=== PATIENT | female | born 1945 | race Caucasian/White ===

== ENCOUNTER 2021-05-15 14:35 | Emergency (ER) | payer MEDICARE, SELFPAY ==
[2021-05-15 14:48] VITALS: BP 135/68; PULSE 75; RESP 20; TEMP 37; O2SAT 99
--- NOTE | 2021-05-15 15:24 | ED.EYEPROB ---
HPI - Eye Problem General Chief complaint: Eye Problems Stated complaint: Possible injury to left Eye Source: patient and RN notes reviewed Limitations: no limitations History of Present Illness HPI Narrative: The patient, previously mostly healthy does not wear contact lenses, presents with left eye discomfort. 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 No significant discharge but there is mild redness and mild photophobia. Past ocular history remarkable for bilateral IOL. Related Data Home Medications Medication Instructions Recorded Confirmed Poston-3 Fish Oil 05/15/21 aspirin [Adult Low Dose Aspirin] 81 mg PO DAILY 05/15/21 05/15/21 metformin 500 mg PO BID 05/15/21 05/15/21 pravastatin 10 mg PO DAILY 05/15/21 05/15/21 Allergies Allergy/AdvReac Type Severity Reaction Status Date / Time No Known Allergies Allergy Verified 05/15/21 15:14 Review of Systems Review of Systems: General/Constitutional: No weight loss,fever Eyes: Reports redness,discharge Ears/Nose/Throat: No: Epistaxis,ear discharge Respiratory: Denies: Hemoptysis Gastrointestinal: No Vomiting, Bleeding-rectal Skin: No Lumps, eruption Neurologic: No Focal Weakness,Sz Hematologic: Denies: Petechiae/Purpura Psychiatric: No: Suicida ideationl All Other Systems: Reviewed and Negative PMFSH Comments At time of signature, agree with nursing past medical, surgical, social and family history. There is no relevant family history pertinent to the presenting complaint Exam Narrative: General Appearance: Well appearing, Well nourished, No distress EYE: PERRLA, [id number] normal), EOMI , s/p IOL lens normal,corneas - small fluorescein uptake at pupil, anterior chamber deep, mild Conjunctiva injection Ears: External ear normal, Auditory canal normal Nose: Normal nose, Nares clear Mouth/Throat: Normal appearing, Normal lips Neck: Supple, No adenopathy Respiratory: Airway patent, No respiratory distress Skin: Warm, Dry Neurological: A&O x3, CN II-X intact Psychiatric: Normal mood, Normal affect Course Vital Signs Vital signs: Vital Signs Temperature 98.6 F 05/15/21 14:48 Pulse Rate 75 05/15/21 14:48 Respiratory Rate 20 05/15/21 14:48 Blood Pressure 135/68 05/15/21 14:48 Pulse Oximetry 99 05/15/21 14:48 Temperature 98.6 F 05/15/21 14:48 Pulse Rate 75 05/15/21 14:48 Respiratory Rate 20 05/15/21 14:48 Blood Pressure 135/68 05/15/21 14:48 Pulse Oximetry 99 05/15/21 14:48 Discharge Plan Discharge Clinical Impression: Acute left eye pain Corneal abrasion Qualifiers: Encounter type: initial encounter Laterality: left Qualified Code(s): S05.02XA - Injury of conjunctiva and corneal abrasion without foreign body, left eye, initial encounter Patient Disposition: Home, Self-Care Condition: Stable Instructions: Corneal Abrasion (ED) Additional Instructions: You may use your home pain meds for any discomfort See eye doctor if not improved Prescriptions: New sulfacetamide sodium [Bleph-10] 10 % drops 2 drp LEFT EYE Q4H Qty: 5 RF: 0 No Action metformin 500 mg tablet 500 mg PO BID RF: 0 pravastatin 10 mg tablet 10 mg PO DAILY RF: 0 Adult Low Dose Aspirin 81 mg Tablet 81 mg PO DAILY RF: 0 Poston-3 Fish Oil RF: 0 Follow-up/Referrals: Geoffrey,Carlos Heart MD [Primary Care Provider] -
== END 2021-05-15 15:30 | disposition home or self-care (01) ==
PROVIDERS: Emergency Provider Emergency Medicine; PCP Internal Medicine
DX: S05.02XA Injury of conjunctiva and corneal abrasion without foreign body, left eye, initial encounter (principal); W22.8XXA Striking against or struck by other objects, initial encounter; E11.9 Type 2 diabetes mellitus without complications
CPT/HCPCS: 99213; A9270; G0463